=== PATIENT | female | born 1995 | race Caucasian/White ===

== ENCOUNTER 2023-01-20 10:05 | Outpatient (CLI) | payer OTHER, SELFPAY ==
[2023-01-20 11:44] LABS: Beta HCG Quantitative 37.79 mIU/ML
== END 2023-01-20 10:06 | disposition home or self-care (01) ==
PROVIDERS: Visit Provider Advanced Practice Midwife
DX: O20.0 Threatened abortion (principal); Z3A.00 Weeks of gestation of pregnancy not specified
CPT/HCPCS: 36415; 84702; 86850; 86900; 86901

== ENCOUNTER 2023-01-22 12:38 | Outpatient (RCR) | payer OTHER, SELFPAY ==
[2023-01-22 13:32] LABS: Beta HCG Quantitative 19.26 mIU/ML
== END 2023-04-22 23:59 | disposition home or self-care (01) ==
LOC: ANHOBOP 12:38
PROVIDERS: PCP Family Medicine; Visit Provider Obstetrics & Gynecology
DX: O20.0 Threatened abortion (principal); Z3A.00 Weeks of gestation of pregnancy not specified
CPT/HCPCS: 36415; 84702

== ENCOUNTER 2023-01-30 12:09 | Outpatient (CLI) | payer OTHER, SELFPAY ==
[2023-01-30 13:08] LABS: Beta HCG Quantitative < 2.39 mIU/ML
[2023-01-30 13:13] LABS: Free T4 Free Thyroxine 1.06 ng/mL (0.78-2.19)
[2023-02-02 04:26] LABS: Thyroid Peroxidase Antibodies 1 IU/mL (<9)
[2023-02-02 06:48] LABS: Triiodothyronine T3 Free 3.3 pg/mL (2.3-4.2)
== END 2023-01-30 12:10 | disposition home or self-care (01) ==
LOC: ANHLAB 12:12
PROVIDERS: PCP Family Medicine; Visit Provider Obstetrics & Gynecology
DX: O02.1 Missed abortion (principal); Z3A.00 Weeks of gestation of pregnancy not specified
CPT/HCPCS: 36415; 84439; 84443; 84481; 84702; 86376

== ENCOUNTER 2023-02-27 12:00 | Outpatient (CLI) | payer OTHER, SELFPAY | END 2023-02-27 12:01 | disposition home or self-care (01) | LOC: ANHLAB 12:03 | PROVIDERS: PCP Family Medicine; Visit Provider Obstetrics & Gynecology | DX: N91.2 Amenorrhea, unspecified (principal) | CPT/HCPCS: 36415; 84702 ==

== ENCOUNTER 2023-10-27 02:24 | Inpatient (IN) | payer OTHER, SELFPAY ==
[2023-10-27] VITALS (100 sets, daily range): BP systolic 86–117; BP diastolic 51–85; PULSE 78–115; RESP 16–18; TEMP 36.5–37.4; O2SAT 93–100; BMI 23.2
[2023-10-27 03:12] LABS: Basophils Percent Auto 0.5 % (0.2-1.2); Eosinophils Absolute Auto 0.1 K/mm3 (0-0.3); Eosinophils Percent Auto 1.5 % (0-4.4); Hematocrit 35.6 % (37.0-47.0); Hemoglobin 11.9 g/dL (12.0-15.0); Immature Granulocyte Absolute 0.09 K/mm3 (0.00-0.031); Immature Granulocyte Percent A 1.1 % (0-0.5); Lymphocytes Absolute Auto 2.48 K/mm3 (0.9-3.2); Lymphocytes Percent Auto 29.1 % (18.3-44.2); Mean Corpuscular HGB Conc 33.4 g/dl (32-36); Mean Corpuscular Hemoglobin 31.5 pg (26-34); Mean Corpuscular Volume 94.2 fl (80-100); Mean Platelet Volume 11.8 fl (7.4-10.4); Monocytes Absolute Auto 0.6 K/mm3 (0.1-0.6); Neutrophils Absolute Auto 5.2 K/mm3 (1.3-6.7); Neutrophils Percent Auto 60.8 % (45.5-73.1); Platelet Count Result 112 k/mm3 (150-375); Red Blood Count 3.78 M/mm3 (4.2-5.4); Red Cell Distribution Width 14.1 % (11.5-14.5); White Blood Count 8.5 K/mm3 (4.5-10.0)
[2023-10-27] MEDS: LACTATED RINGERS 1,000 ML 125 ML IV CONT ×2 (03:38→09:01)
[2023-10-27] MEDS: OXYTOCIN 30 UNITS/NS 500 ML 30 UNITS/500 ML BAG IV CONT (03:39)
--- NOTE | 2023-10-27 03:49 | LDADM ---
This patient, Minnie Mendieta, was admitted to Labor/Delivery/Recovery 104 on 10/27/23 at 02:24. Plans for labor, pain management and were discussed with patient. Patient/family oriented to hospital policies and general routines including ID bracelet, bed and alarms, visiting hours, pain management, procedures, bathroom and other care routines, personal items, smoking policy, room service/diet and guest tray routines, security routines, and visiting hours. Patient/Family are encouraged to report perceived risks to care and to ask questions if they do not understand what they are told or what they should do. See OBIX for further documentation.
[2023-10-27 04:07] LABS: HIV 1/2 Ab P24 Ag Result Negative (Negative)
[2023-10-27 04:31] LABS: Rapid Plasma Reagin Non-Reactive (NonReactive)
--- NOTE | 2023-10-27 07:48 | WPDOBADMIT ---
Obstetrics - Admit Note Admission Note: record reviewed. No pertinent additions to the history and/or any subsequent changes in the physical findings that are not consistent with the expected course of the were found. Additions to the history and/or subsequent changes in the physical findings follow. Admit for IOL, SVE 3.5/70/-2 AROM moderate amount of clear, odorless fluid, anticipate vaginal delivery
--- NOTE | 2023-10-27 08:24 | WPDANESEPPF ---
Anes - Initial Pre Proc Eval Procedure: Labor Epidural Date/Time: 10/27/23 08:24 Surgeon: Andrea Broderick MD Pre Op Diagnosis: LAbor pain Pre Op Diagnosis: IOL Patient Data Age: 28 Gender: F Height: 1.63 m Weight: 61.36 kg Last Vital Signs Temp 36.6 C 10/27/23 07:11 Pulse 107 H 10/27/23 08:19 Resp 16 10/27/23 07:11 BP 109/65 10/27/23 08:19 O2 Del Method Room Air 10/27/23 03:46 Allergies Allergy/AdvReac Type Severity Reaction Status Date / Time amoxicillin Allergy Unknown Hives Verified 10/27/23 04:41 Home Medications Medication Instructions Recorded Confirmed Type vits no.126-ferrous fum 1 tablet PO DAILY 10/21/23 10/21/23 History 28 mg iron-folic acid 800 mcg tablet (Classic ) Laboratory Tests 10/27/23 03:03 WBC 8.5 K/mm3 (4.5-10.0) RBC 3.78 L M/mm3 (4.2-5.4) Hgb 11.9 L g/dL (12.0-15.0) Hct 35.6 L % (37.0-47.0) MCV 94.2 fl (80-100) MCH 31.5 pg (26-34) MCHC 33.4 g/dl (32-36) RDW 14.1 % (11.5-14.5) Plt Count 112 L k/mm3 (150-375) MPV 11.8 H fl (7.4-10.4) Immature Gran % (Auto) 1.1 H % (0-0.5) Neut % (Auto) 60.8 % (45.5-73.1) Lymph % (Auto) 29.1 % (18.3-44.2) Frontier % (Auto) 7.0 % (2.6-8.5) Eos % (Auto) 1.5 % (0-4.4) Baso % (Auto) 0.5 % (0.2-1.2) Lymph # (Auto) 2.48 K/mm3 (0.9-3.2) Frontier # (Auto) 0.6 K/mm3 (0.1-0.6) Eos # (Auto) 0.1 K/mm3 (0-0.3) Baso # (Auto) 0.0 K/mm3 (0.0-0.1) Abs Immat Gran (auto) 0.09 H K/mm3 (0.00-0.031) Absolute Neuts (auto) 5.2 K/mm3 (1.3-6.7) Absolute Nucleated RBC 0.000 K/mm3 (0.0-0.012) Nucleated RBC % 0.0 % (0.0-0.2) RPR Non-reactive (NonReactive) HIV 1&2 Ab/P24 Ag 4thGn Negative (Negative) Blood Type O Positive Antibody Screen Negative : gestational age (, WARNER 11/03/23) Patient hx anesthesia problems: none Family hx anesthesia problems: none Results Review: All pre-operative results and documents have been reviewed as part of the pre-operative evaluation. [facility] Family History Family History Other No pertinent family history Social History Social History Smoking status: Never smoker Substance use: never Do You Feel Safe in your Home?: Yes Lack of Transportation: No Lack of Food: Never True Current Housing: I Have Housing Concerned About Future Housing: No Difficulty Paying Gas/Electric Bills: No Difficulty Paying for Meds: No Currently Unemployed: No Education: Master's Degree or Higher Difficulty w/ Childcare or Family Care: No Spiritual care concerns: No Anes - Eval Final PreProcedure Day of Procedure 10/27/23 08:24 Patient weight: normal Heart: regular rate and rhythm Lungs: normal air movement Airway: Mallampati scale class II Neurological: alert and oriented ASA classification: II Anesthetic plan: proceed Results Review: All pre-operative results and documents have been reviewed as part of the pre-operative evaluation. Informed Consent: The patient's anesthetic plan and its attendant risks and benefits were discussed with the patient/family/POA. Questions were solicited and answers provided to the satisfaction of the patient/family/POA.
[2023-10-27] MEDS: ONDANSETRON INJ 4 MG/2 ML VIAL IV PUSH (08:40)
[2023-10-27] MEDS: miSOPROStol 200 MCG TABLET 1000 MCG RECTAL (12:39)
--- NOTE | 2023-10-27 12:51 | PM.OBPRVD ---
OB - Vaginal Delivery Note Procedure Delivery date: 10/27/23 Events: Other (gestational thrombocytopenia) Induction method: AROM and Per Pitocin Protocol Delivery monitor: External FHT and External Uterine Route of delivery: Episiotomy description: None Laceration Description: Perineal - 1st Degree Delivery repair: vicryl Specimen: No Quantitative Blood Loss (ml): 200 Anesthesia type: Epidural Disposition: Floor Complications: No immediate complications Baby Date of : 10/27/[birth year] Time of : 12:27 Gestational Age by Date: 39 Infant gender: Male presentation: vertex position: Left Occiput Anterior Placenta delivery description: Spontaneous Cord Vessel Description: 3 Vessels score one minute: 9 score five minutes: 9
[2023-10-27] MEDS: TRANEXAMIC ACID 1,000MG/ISO100 1,000 MG/100 ML BAG 200 MG IVPB (12:53)
[2023-10-27] MEDS: OXYTOCIN 30 UNITS/NS 500 ML 30 UNITS/500 ML BAG 125 UNITS IV CONT (13:10)
[2023-10-27] MEDS: WITCH HAZEL 40 PADS 1 PAD TOPICAL (15:30)
[2023-10-27] MEDS: BENZOCAINE 20% AER SPR (*SP) 56 GM CAN 1 SPRAY TOPICAL (15:30)
--- NOTE | 2023-10-27 15:40 | OBPPTRN ---
Patient transferred to post room #281 via wheelchair. Support person present. Oriented to unit, room, information board, rooming in, admission packet and security measures. Patient verbalizes understanding.
[2023-10-27] MEDS: IBUPROFEN 600 MG TABLET PO (17:44)
[2023-10-27] MEDS: DOCUSATE SODIUM 100 MG CAPSULE PO (17:44)
[2023-10-28 00:20] VITALS: BP 108/71; PULSE 79; RESP 18; TEMP 35.9; O2SAT 99
[2023-10-28] MEDS: IBUPROFEN 600 MG TABLET PO ×2 (04:23→10:10)
[2023-10-28 04:25] VITALS: BP 101/65; PULSE 82; RESP 18; TEMP 36.3; O2SAT 99
[2023-10-28 05:14] LABS: Hematocrit 33.6 % (37.0-47.0); Hemoglobin 11.2 g/dL (12.0-15.0)
--- NOTE | 2023-10-28 07:28 | WPDANLDPN2 ---
Anes-Prog Note L&D Date/Time: 10/28/23 07:28 Comfortable throughout: labor and delivery Neuraxial method: epidural Epidural/Spinal procedure site: clean & non-tender Neuro status: Neuro function grossly intact. Cardiovascular status: normal Respiratory status: normal Airway patency: baseline Mental status: baseline Post-Op hydration status: normal Vital Signs: Last Vital Signs Temp 36.3 C L 10/28/23 04:25 Pulse 82 10/28/23 04:25 Resp 18 10/28/23 04:25 BP 101/65 10/28/23 04:25 Pulse Ox 99 10/28/23 04:25 O2 Del Method Room Air 10/27/23 20:11 Pain score (VAS): 1 I/O: Intake & Output 10/27/23 10/27/23 10/28/23 15:59 23:59 07:59 Intake Total 1000 500 Output Total 200 Balance 800 500 Post-procedural complaints: none Patient feedback: Patient satisfied with anesthetic care.
--- NOTE | 2023-10-28 08:17 | P.PNOB_ITS ---
OB - PN: Subj Subjective Date/time seen: 10/28/23 08:17 Interval history: PPD#1 s/p Doing well, pain controlled Tolerating general diet Voiding without issue Bleeding minimal , doing well OB - PN: Obj Data Labs 10/28/23 04:15 Labs: Laboratory Results - last 24 hr 10/28/23 04:15 Hgb 11.2 L Hct 33.6 L OB - PN A/P Plan day: 1 Plan: routine care and discharge home Time Spent With Patient Time: Total time spent is greater than 50% in coordination of care (as documented) at patient's floor/unit and/or counseling patient: Review of Systems Review of Systems: All systems reviewed & are unremarkable except as noted in HPI and below Exam Const: General: comfortable and no acute distress Orienta tion/consciousness: patient oriented x3 Resp: Effort & Inspection: normal respiratory effort
--- NOTE | 2023-10-28 08:21 | PM.OBDSVD ---
DS: Admitting Diagnosis Discharge Date 10/28/23 Admitting Diagnosis elective induction of labor DS: Discharge Diagnosis Discharge Diagnosis (1) (spontaneous vaginal delivery): Code(s): O80 - Encounter for full-term uncomplicated delivery Status: Acute OB - DS: Summary OB Procedures : None OB Procedures Intrapartum: Spontaneous Vag Delivery OB Procedures: : None Peripartum Data Laceration Description: Perineal - 1st Degree Episiotomy description: None Time Spent with Patient Time attestation: Total time spent providing and/or coordinating discharge services: DS: Data Data Completed and Pending Labs on day of discharge: Labs from last 24 hours 10/28/23 04:15 Hgb 11.2 L Hct 33.6 L Discharge Plan Discharge Attending physician on discharge: Andrea Broderick Consulting providers: Margarita Samson Discharging Clinician: Andrea Broderick Patient Disposition: Home, Self-Care Activity: may shower, as tolerated and pelvic rest Diet: as tolerated Patient Instructions: Antibiotic Form Stand Alone Forms: General Discharge Information Follow-up/Referrals: Andrea Broderick MD [Physician] - 4 Weeks (Dr. Broderick or Margarita Samson) Discharge Medications: New docusate sodium 100 mg Capsule 100 mg PO BID PRN (Reason: Constipation) Qty: 60 0RF ibuprofen 600 mg Tablet 600 mg PO Q6H PRN (Reason: Cramping) Qty: 30 0RF Continued Classic 28 mg iron- 800 mcg Tablet 1 tablet PO DAILY Date of admission: 10/27/23 02:24 Primary Care Provider: Gregory,Joe Bowers Admitting Provider: Andrea Broderick Attending physician on admission: Andrea Broderick Condition: Stable
--- NOTE | 2023-10-28 09:40 | PC.NURSE ---
Mother verbalizes she is able to independently latch with appropriate positioning and alignment. She denies any nipple discomfort and is responsively . Infant is currently meeting outcomes for weight, output, jaundice, blood sugar and feeding frequencies of 8-12 times in 24 hours. Small blistering noted on right nipple. Encouraged mother to let excess breastmilk dry onto the nipple and additionally use nipple cream inbetween feedings. Mother declines any additional assistance or education at this time. Mother is encouraged to call for assistance if her infant doesn?t latch, pain with latching, questions or concerns. Mother voiced understanding of information shared along with the mom/baby guide for an additional resource. Reported to the Primary RN.
[2023-10-28 10:10] VITALS: BP 105/70; PULSE 86; RESP 16; TEMP 36.2; O2SAT 100
[2023-10-28] MEDS: DOCUSATE SODIUM 100 MG CAPSULE PO (10:10)
[2023-10-28] MEDS: MULTIVIT/MIN/PREN/FOL AC/IRON TABLET 1 TAB PO (10:10)
[2023-10-30 11:21] VITALS: BP 113/77; PULSE 90; RESP 18; TEMP 36.7; O2SAT 100
== END 2023-10-28 15:27 | disposition home or self-care (01) | DRG 807 ==
LOC: ANHLDR 02:27 → ANHOB2 15:42
PROVIDERS: Advanced Practice Midwife; Admitting Provider Obstetrics & Gynecology; PCP Family Medicine; Visit Provider Obstetrics & Gynecology
DX: O99.12 Other diseases of the blood and blood-forming organs and certain disorders involving the immune mechanism complicating childbirth (principal); Z37.0 Single live birth; O70.0 First degree perineal laceration during delivery; D69.6 Thrombocytopenia, unspecified; Z3A.39 39 weeks gestation of pregnancy
CPT/HCPCS: 36415; 85014; 85018; 85025; 86592; 86703; 86850; 86900; 86901; A9270; G0432; J2405; J2590; J2795; J7120